=== PATIENT | male | born 1980 | race Caucasian/White ===

== ENCOUNTER 2018-09-14 14:21 | Day surgery (SDC) | payer BC ==
[2018-09-14] MEDS ORDERED: Marcaine 0.5% SDV 10 ML IJ ONE (14:22)
[2018-09-14] MEDS ORDERED: Xylocaine 1% Vial 30 ML PF IJ ONE (14:22)
[2018-09-14] MEDS ORDERED: Depo-Medrol 40 MG/ML IM ONE (14:22)
--- NOTE | 2018-09-14 16:19 | XRAY ---
11 seconds fluoroscopyt yinka in surgery for right hip injection.
--- NOTE | 2018-09-14 16:50 | XRAY ---
Indication: Right hip injection. Intraoperative fluoroscopy was provided for 11 seconds. Single digital spot image submitted for interpretation demonstrates needle tip just lateral to the right femur head. Small amount of contrast injected for needle tip placement. Correlate with intraoperative findings/report. Incidental partially visualized pelvic fixation plates/screws.
== END 2018-09-14 15:47 | disposition home or self-care (01) ==
LOC: SDC-PAIN 14:21
PROVIDERS: ATTEND Psychiatry & Neurology Pain Medicine
DX: M16.11 Unilateral primary osteoarthritis, right hip (principal); Z79.899 Other long term (current) drug therapy; G62.9 Polyneuropathy, unspecified
CPT/HCPCS: 20610; 73501; 77002; J1030; J2001; Q9966

== ENCOUNTER 2018-12-21 13:12 | Day surgery (SDC) | payer BC ==
[2018-12-21] MEDS ORDERED: Depo-Medrol 40 MG/ML IM ONE (13:13)
[2018-12-21] MEDS ORDERED: Xylocaine 1% Vial 30 ML PF IJ ONE (13:13)
[2018-12-21] MEDS ORDERED: Marcaine 0.5% SDV 10 ML IJ ONE (13:13)
[2018-12-21] MEDS ORDERED: DIPRIVAN 200 MG/20 ML IV ONE ×2 (14:52→15:02)
--- NOTE | 2018-12-21 16:32 | XRAY ---
Indication: Right SI joint injection. Intraoperative fluoroscopy was provided for 5 seconds. 2 digital spot images submitted for interpretation demonstrates posterior needle tip projecting over the inferior right SI joint. Correlate with intraoperative findings/report. Incidental partially visualized right hip orthopedic hardware.
--- NOTE | 2018-12-21 16:44 | XRAY ---
5 seconds fluoroscopy time in surgery for right SI joint injection.
[2018-12-21] MEDS ORDERED: Lactated Ringers 1,000 ML IV ONE (16:47)
== END 2018-12-21 15:28 | disposition home or self-care (01) ==
LOC: SDC-PAIN 13:12
PROVIDERS: ATTEND Psychiatry & Neurology Pain Medicine
DX: M46.1 Sacroiliitis, not elsewhere classified (principal); G62.9 Polyneuropathy, unspecified; Z79.899 Other long term (current) drug therapy
CPT/HCPCS: 20553; 27096; 72020; 77002; J1030; J2001; J2704; G0260

== ENCOUNTER 2019-04-26 13:12 | Day surgery (SDC) | payer BC ==
[2019-04-26] MEDS ORDERED: Marcaine 0.5% SDV 10 ML IJ ONE (13:13)
[2019-04-26] MEDS ORDERED: Ketamine HCl 50 MG/ML ONE (14:37)
[2019-04-26] MEDS ORDERED: DIPRIVAN 200 MG/20 ML IV ONE (14:37)
[2019-04-26] MEDS ORDERED: TORAdol 30 mg Injection ONE (14:51)
--- NOTE | 2019-04-26 15:41 | XRAY ---
Indication: Right SI joint injection. Intraoperative fluoroscopy was provided for 8 seconds. 2 digital spot image submitted for interpretation demonstrates posterior needle tip projecting over the inferior right SI joint. Correlate with intraoperative findings/report. Incidental partially visualized right hip orthopedic hardware.
--- NOTE | 2019-04-26 17:08 | XRAY ---
8 seconds fluoroscopy time in surgery for bilateral SI joint injection.
== END 2019-04-26 15:02 | disposition home or self-care (01) ==
LOC: SDC-PAIN 13:12
PROVIDERS: ATTEND Psychiatry & Neurology Pain Medicine
DX: M46.1 Sacroiliitis, not elsewhere classified (principal); Z79.899 Other long term (current) drug therapy; G62.9 Polyneuropathy, unspecified
CPT/HCPCS: 27096; 72202; 77002; J1885; J2704; G0260

== ENCOUNTER 2019-05-31 11:23 | Day surgery (SDC) | payer BC ==
[2019-05-31] MEDS ORDERED: Marcaine 0.5% SDV 10 ML IJ ONE (11:24)
[2019-05-31] MEDS ORDERED: Depo-Medrol 40 MG/ML IM ONE (11:24)
[2019-05-31] MEDS ORDERED: DIPRIVAN 200 MG/20 ML IV ONE ×2 (12:32→12:48)
[2019-05-31] MEDS ORDERED: Ketamine HCl 50 MG/ML ONE (12:32)
--- NOTE | 2019-05-31 15:36 | XRAY ---
Indication: Right ischial and trochanter bursa injection. Intraoperative fluoroscopy was provided for 29 seconds. 2 digital spot images submitted for interpretation demonstrates needle tips adjacent to the right greater trochanter and right ischial tuberosity. Small amount of contrast injected for needle tip placement. Correlate with intraoperative findings/report. Incidental partially visualized right innominate bone orthopedic hardware.
--- NOTE | 2019-05-31 15:42 | XRAY ---
29 seconds fluoroscopy time in surgery for right ischial and trochanteric bursa injections.
[2019-05-31] MEDS ORDERED: Lactated Ringers 1,000 ML IV ONE (15:55)
== END 2019-05-31 14:05 | disposition home or self-care (01) ==
LOC: SDC-PAIN 11:23
PROVIDERS: ATTEND Psychiatry & Neurology Pain Medicine
DX: M70.61 Trochanteric bursitis, right hip (principal); M70.71 Other bursitis of hip, right hip; Z79.899 Other long term (current) drug therapy
CPT/HCPCS: 20610; 73502; 77002; J1030; J2704; Q9966

== ENCOUNTER 2020-10-16 13:47 | Day surgery (SDC) | payer BC ==
[2020-10-16] MEDS ORDERED: Depo-Medrol 40 MG/ML IM ONE (13:48)
[2020-10-16] MEDS ORDERED: BUPIVACAINE 0.5% VIAL IJ ONE (13:48)
[2020-10-16] MEDS ORDERED: DIPRIVAN 200 MG/20 ML IV ONE (16:01)
[2020-10-16] MEDS ORDERED: Lactated Ringers 1,000 ML IV ONE (16:22)
--- NOTE | 2020-10-16 17:41 | XRAY ---
Indication: Right hip and ischial bursa injection. Intraoperative fluoroscopy provided for 41 seconds. 2 digital spot images obtained prone submitted for interpretation demonstrates needle tip just lateral to the right femur neck. Second needle tip projects inferior to the right ischial tuberosity. Small amount of contrast injected for both needle tip placement. Correlate with intraoperative findings/report. Incidental orthopedic fixation plates/screws overlie the hip.
--- NOTE | 2020-10-16 17:41 | XRAY ---
41 seconds of fluoroscopy was used in surgery for a right intra-articular hip and ischial bursa injection.
== END 2020-10-16 16:31 | disposition home or self-care (01) ==
LOC: SDC-PAIN 13:47
PROVIDERS: ATTEND Psychiatry & Neurology Pain Medicine
DX: M16.11 Unilateral primary osteoarthritis, right hip (principal); M70.71 Other bursitis of hip, right hip; M19.90 Unspecified osteoarthritis, unspecified site; G62.9 Polyneuropathy, unspecified; Z79.899 Other long term (current) drug therapy
CPT/HCPCS: 20610; 73502; 77002; J1030; J2704; Q9966

== ENCOUNTER 2021-02-26 14:58 | Day surgery (SDC) | payer BC ==
[2021-02-26] MEDS ORDERED: Depo-Medrol 40 MG/ML IM ONE (14:59)
[2021-02-26] MEDS ORDERED: Decadron 4 MG INJ IV ONE (14:59)
[2021-02-26] MEDS ORDERED: Xylocaine 1% Vial 30 ML PF IJ ONE (14:59)
[2021-02-26] MEDS ORDERED: BUPIVACAINE 0.5% VIAL IJ ONE (14:59)
[2021-02-26] MEDS ORDERED: Lactated Ringers 0 ML IV ONE (15:24)
[2021-02-26] MEDS ORDERED: DIPRIVAN 200 MG/20 ML IV ONE ×2 (16:33→16:50)
[2021-02-26] MEDS ORDERED: Lactated Ringers 1,000 ML IV ONE (19:21)
--- NOTE | 2021-02-26 20:41 | XRAY ---
Indication: Right piriformis, right ischial bursa, and right hip injections. Intraoperative fluoroscopy provided for 58 seconds. 3 digital spot image submitted for interpretation demonstrates posterior needle tip projecting over the expected right piriformis muscle. Second needle tip projects inferior to right initial tuberosity. Third needle tip lateral to right femur neck. Small amount of contrast injected for all needle tip placement. Correlate with intraoperative findings/report.
--- NOTE | 2021-02-27 08:42 | XRAY ---
58 seconds fluoroscopy time in surgery for injections of the right piriformis muscle, intra-articular injection of the right hip and the ischial bursa.
== END 2021-02-26 17:15 | disposition home or self-care (01) ==
LOC: SDC-PAIN 14:58
PROVIDERS: ATTEND Psychiatry & Neurology Pain Medicine
DX: M16.11 Unilateral primary osteoarthritis, right hip (principal); M79.18 Myalgia, other site; M70.71 Other bursitis of hip, right hip; Z79.899 Other long term (current) drug therapy
CPT/HCPCS: 20552; 20610; 73502; 77002; J1030; J1100; J2001; J2704; Q9966

== ENCOUNTER 2021-10-29 13:07 | Day surgery (SDC) | payer BC ==
[2021-10-29] MEDS ORDERED: XYLOCAINE-MPF 1% 5ML SDV IJ ONE (13:08)
[2021-10-29] MEDS ORDERED: Marcaine Mpf 0.5% Vial 30 Ml IJ ONE (13:08)
[2021-10-29] MEDS ORDERED: Depo-Medrol 40 MG/ML IM ONE (13:08)
[2021-10-29] MEDS ORDERED: Decadron 4 MG INJ IV ONE (13:08)
[2021-10-29] MEDS ORDERED: DIPRIVAN 200 MG/20 ML IV ONE ×2 (14:21→14:25)
[2021-10-29] MEDS ORDERED: Lactated Ringers 1,000 ML IV ONE (14:35)
--- NOTE | 2021-10-29 15:05 | XRAY ---
Indication: Right piriformis injection. Intraoperative fluoroscopy provided for 41 seconds. 3 digital spot image submitted for interpretation demonstrates needle tip projecting over the right piriformis muscle. Small amount of contrast was injected for needle tip placement. Correlate with intraoperative findings/report. Incidental multiple right tip orthopedic fixation plate/screws.
--- NOTE | 2021-10-29 16:00 | XRAY ---
41 seconds of fluoroscopy was used in surgery for a right piriformis, right ischial bursa, and right hip intra-articular injections.
== END 2021-10-29 14:45 | disposition home or self-care (01) ==
LOC: SDC-PAIN 13:07
PROVIDERS: ATTEND Psychiatry & Neurology Pain Medicine
DX: M79.18 Myalgia, other site (principal); M70.71 Other bursitis of hip, right hip; M16.11 Unilateral primary osteoarthritis, right hip; Z79.899 Other long term (current) drug therapy
CPT/HCPCS: 20552; 20610; 73502; 77002; J1030; J1100; J2704; Q9966

== ENCOUNTER 2022-03-11 11:24 | Day surgery (SDC) | payer BC ==
[2022-03-11] MEDS ORDERED: Depo-Medrol 40 MG/ML IM ONE (11:25)
[2022-03-11] MEDS ORDERED: Marcaine Mpf 0.5% Vial 30 Ml IJ ONE (11:25)
[2022-03-11] MEDS ORDERED: DIPRIVAN 200 MG/20 ML IV ONE ×2 (13:51→13:57)
[2022-03-11] MEDS ORDERED: Lactated Ringers 1,000 ML IV ONE (14:02)
--- NOTE | 2022-03-12 08:17 | XRAY ---
Indication: Right hip, right SI, and right greater trochanter bursa injections. Intraoperative fluoroscopy provided for 33 seconds. 4 digital spot image obtained prone submitted for interpretation demonstrates posterior needle tip projecting over the right SI joint. Additional needle tip lateral to the right femur neck and right greater trochanter with small amount of contrast injected for both needle tip placement. Correlate with intraoperative findings/report.
== END 2022-03-11 14:25 | disposition home or self-care (01) ==
LOC: SDC-PAIN 11:24
PROVIDERS: ATTEND Psychiatry & Neurology Pain Medicine
DX: M46.1 Sacroiliitis, not elsewhere classified (principal); M16.11 Unilateral primary osteoarthritis, right hip; M70.61 Trochanteric bursitis, right hip; Z79.899 Other long term (current) drug therapy
CPT/HCPCS: 20610; 27096; 73502; 77002; J1030; J2704; Q9966; G0260

== ENCOUNTER 2022-08-05 09:33 | Day surgery (SDC) | payer BC ==
[2022-08-05] MEDS ORDERED: Depo-Medrol 40 MG/ML IM ONE (09:34)
[2022-08-05] MEDS ORDERED: BUPIVACAINE 0.5% VIAL IJ ONE (09:34)
[2022-08-05] MEDS ORDERED: LIDOCAINE HCL 1% 50 MG/5 ML VL PF IJ ONE (09:34)
[2022-08-05] MEDS ORDERED: Decadron 4 MG INJ IV ONE (09:34)
[2022-08-05] MEDS ORDERED: DIPRIVAN 200 MG/20 ML IV ONE ×2 (11:27→11:36)
--- NOTE | 2022-08-05 12:04 | XRAY ---
Indication: Right hip, piriformis, and ischial bursa injections. Intraoperative fluoroscopy provided for 55 seconds. 4 digital spot images obtained prone submitted for interpretation demonstrates posterior needle tip projecting over right piriformis muscle. Second needle tip projects over right inferior ischial tuberosity. Third needle tip projects lateral to right femur neck. Small amount of contrast injected for all needle tip placement. Correlate with intraoperative findings/report. Incidental incompletely visualized right pelvic bone fixation plates/screws.
[2022-08-05] MEDS ORDERED: Lactated Ringers 1,000 ML IV ONE (12:09)
--- NOTE | 2022-08-05 12:20 | XRAY ---
55 seconds of fluoroscopy was used in surgery for a right intra-articular hip, right piriformis, and right ischial bursa injection.
== END 2022-08-05 12:10 | disposition home or self-care (01) ==
LOC: SDC-PAIN 09:33
PROVIDERS: ATTEND Psychiatry & Neurology Pain Medicine
DX: M70.61 Trochanteric bursitis, right hip (principal); M16.11 Unilateral primary osteoarthritis, right hip; M79.18 Myalgia, other site; Z79.899 Other long term (current) drug therapy
CPT/HCPCS: 20552; 20610; 73502; 77002; 77003; J1030; J1100; J2001; J2704; Q9966

== ENCOUNTER 2023-01-30 06:24 | Emergency (ER) | payer BC ==
[2023-01-30 06:50] VITALS: TEMP 96.8
--- NOTE | 2023-01-30 06:53 | ERPHSYRPT ---
- History of Present Illness Source: patient, family Exam Limitations: no limitations Timing/Duration: day(s) (6) Quality: painful Severity: mild Location: hands (Left hand index finger dorsal aspect) Possible Causes: other (Unsure. Initially, the patient thought it was a splinter or metal shaving. He works around both. He did not witness an insect bite) Associated Symptoms: blisters, change in skin texture <ANSELMO JAVIER - Last Filed: 01/30/23 06:47> <WILLIAM ERNANDEZ - Last Filed: 01/30/23 09:13> - History of Present Illness Time Seen by Provider: 01/30/23 06:47 Physician History: The 42-year-old left-handed male who noticed 6 days ago a small area of black necrosis dorsal aspect mid index finger. He used a knife to shave that area off. He then put Neosporin on the site and put a bandage on it. Within 24 hours he noticed increased redness and swelling. He kept it clean and by Wednesday it was worse and he went to [facility] in [facility] and an x-ray was performed which she do not have access to and he was started on Levaquin. In the last couple of days there has been some improvement but then in the last 24 hours there is been increase in swelling and redness and pus is present with palpation. He also feels pain shooting proximally from this site into his mid forearm region. A culture was obtained. Again we do not have access to this culture. Patient does not have much pain unless it is palpated. He has had no fever. (ANSELMO JAVIER) Allergies/Adverse Reactions: pork derived (porcine) Allergy (Verified 01/30/23 06:28) Pork/Porcine Containing Products Allergy (Verified 01/30/23 06:28) Home Medications: Acetaminophen with Codeine [Acetaminophen-Cod #4 Tablet] 1 each PO QID 01/30/23 [History] Desvenlafaxine Succinate [Desvenlafaxine Succinate ER] 50 mg PO DAILY 01/30/23 [History] Rizatriptan Benzoate [Rizatriptan] 10 mg PO DAILY 01/30/23 [History] levoFLOXacin [Levofloxacin] 500 mg PO DAILY 01/30/23 [History] Travel Risk - International Travel Have you traveled outside of the country in past 3 weeks: No - Coronavirus Screening Are you exhibiting any of the following symptoms?: No Close contact with a COVID-19 positive Pt in past 14-21 Days: No <ANSELMO JAVIER - Last Filed: 01/30/23 06:47> - Review of Systems Constitutional: No Symptoms Eyes: No Symptoms Ears, Nose, & Throat: No Symptoms Respiratory: No Symptoms Cardiac: No Symptoms Abdominal/Gastrointestinal: No Symptoms Genitourinary Symptoms: No Symptoms Musculoskeletal: Other (Red swollen left index finger dorsal aspect with blistering) Skin: Cellulitis (Left index finger) Neurological: No Symptoms Psychological: No Symptoms Endocrine: No Symptoms Hematologic/Lymphatic: No Symptoms Immunological/Allergic: No Symptoms All Other Systems: Reviewed and Negative <ANSELMO JAVIER - Last Filed: 01/30/23 06:47> - Past Medical History Pertinent Past Medical History: Yes - Past Surgical History Past Surgical History: Yes <ANSELMO JAVIER - Last Filed: 01/30/23 06:47> - Physical Exam General Appearance: no apparent distress, alert, anxiety Eye Exam: PERRL/EOMI, eyes nml inspection Ears, Nose, Throat Exam: normal ENT inspection, moist mucous membranes Neck Exam: normal inspection, non-tender, supple, full range of motion Respiratory Exam: airway intact, No chest tenderness, No respiratory distress Gastrointestinal/Abdomen Exam: No tenderness Rectal Exam: not done Back Exam: normal inspection, normal range of motion, No CVA tenderness, No vertebral tenderness Extremity Exam: pelvis stable, inflammation, limited range of motion, swelling, tenderness (Soft tissue swelling left index finger dorsal aspect with blistering and decreased range of motion. There is a sensation of proximal streaking but no visible redness at this time) Neurologic Exam: alert, oriented x 3, cooperative, chemistry technical officer II-XII nml as tested, normal mood/affect, nml cerebellar function, nml station & gait, sensation nml Skin Exam: other (See above) Lymphatic Exam: No adenopathy SpO2 Interpretation: normal O2 Delivery: Room Air <ANSELMO JAVIER - Last Filed: 01/30/23 06:47> - Nursing Vital Signs Nursing Vital Signs: Initial Vital Signs Temperature 96.8 F 01/30/23 06:25 Pulse Rate 63 01/30/23 06:25 Respiratory Rate 14 01/30/23 06:25 Blood Pressure 152/100 01/30/23 06:25 O2 Sat by Pulse Oximetry 100 01/30/23 06:25 Pain Scale Pain Intensity 0 - Course Nursing assessment & vital signs reviewed: Yes <ANSELMO JAVIER - Last Filed: 01/30/23 06:47> - Radiology Exams Hand X-ray Interpretation: Reviewed by me (soft tissue swelling) <WILLIAM ERNANDEZ - Last Filed: 01/30/23 09:13> Ordered Tests: Active Orders 24 hr Category Date Time Status IV Insertion STAT Care 01/30/23 06:54 Active Pulse Oximetry (ED) STAT Care 01/30/23 06:54 Active HAND (MINIMUM 3 VIEWS) Stat Exams 01/30/23 06:55 Completed BLOOD CULTURE Stat Lab 01/30/23 07:10 Received CBC W DIFF Stat Lab 01/30/23 06:55 Completed CMP Stat Lab 01/30/23 06:55 Completed Lactic Acid Stat Lab 01/30/23 07:10 Completed Medication Summary Generic Name Dose Route Start Last Admin Trade Name Freq PRN Reason Stop Dose Admin Vancomycin HCl 2 gm in 400 mls @ 133 mls/hr 01/30/23 07:45 01/30/23 07:38 Vancomycin 2 Gram/400 Ml Bag IV 03/01/23 07:44 133 mls/hr Q24H ANITA 133 mls/hr Administration Lab/Rad Data: Laboratory Result Diagrams 01/30/23 06:55 01/30/23 06:55 Laboratory Results 01/30/23 01/30/23 01/30/23 Range/Units 07:10 06:55 06:55 WBC 6.3 (4.0-10.5) x10^3/uL RBC 4.12 (4.1-5.6) x10^6/uL Hgb 12.5 (12.5-18.0) g/dL Hct 37.6 L (42-50) % MCV 91.3 (78-100) fL MCH 30.3 (26-32) pg MCHC 33.2 (32-36) g/dL RDW 12.0 (11.5-14.0) % Plt Count 188 (150-450) x10^3/uL MPV 9.8 (7.5-11.0) fL Gran % 58.2 (36.0-66.0) % Immature Gran % (Auto) 0.6 H (0.00-0.4) % Nucleat RBC Rel Count 0.0 (0.00-0.1) % Eos # (Auto) 0.16 (0-0.5) x10^3/uL Immature Gran # (Auto) 0.04 H (0.00-0.03) x10^3u/L Absolute Lymphs (auto) 1.76 (1.0-4.6) x10^3/uL Absolute Monos (auto) 0.63 (0.0-1.3) x10^3/uL Absolute Nucleated RBC 0.00 (0.00-0.01) x10^3u/L Lymphocytes % 27.9 (24.0-44.0) % Monocytes % 10.0 (0.0-12.0) % Eosinophils % 2.5 (0.00-5.0) % Basophils % 0.8 (0.0-0.4) % Absolute Granulocytes 3.67 (1.4-6.9) x10^3/uL Basophils # 0.05 (0-0.4) x10^3/uL Sodium 140 (137-145) mmol/L Potassium 4.1 (3.5-5.1) mmol/L Chloride 105 (98-107) mmol/L Carbon Dioxide 26 (22-30) mmol/L Anion Gap 13.8 (5-15) MEQ/L BUN 19 (9-20) mg/dL Creatinine 0.82 (0.66-1.25) mg/dL Estimated GFR > 60.0 ML/MIN Glucose 109 H (74-106) mg/dL Lactic Acid 1.2 (0.4-2.0) Calcium 9.1 (8.4-10.2) mg/dL Total Bilirubin 0.20 (0.2-1.3) mg/dL AST 63 H (17-59) U/L ALT 42 (0-50) U/L Alkaline Phosphatase 77 (38-126) U/L Serum Total Protein 7.1 (6.3-8.2) g/dL Albumin 4.1 (3.5-5.0) g/dL RAD/HAND (MINIMUM 3 VIEWS) Indication: Index finger swelling and erythema 6 days. No known injury. Comparison: None 3 view left hand demonstrates proximal 2nd finger soft tissue swelling. No other bony, articular, or soft tissue abnormalities (WILLIAM ERNANDEZ) - Progress Progress: unchanged Counseled pt/family regarding: lab results, diagnosis, rad results <ANSELMO JAVIER - Last Filed: 01/30/23 06:47> - Progress Counseled pt/family regarding: need for follow-up <WILLIAM ERNANDEZ - Last Filed: 01/30/23 09:13> - Progress Progress Note: 01/30/23 06:52 This patient care is transferred to Dr. Ernandez at shift change, approximately 7 AM this morning. He will follow-up on x-ray results and laboratory studies and make final disposition. (ANSELMO JAVIER) 01/30/23 07:15 Patient was seen and examined. Patient left hand index finger is swollen and purulent discharge visible. Patient and his significant other were informed about further course of action including IV antibiotic. (WILLIAM ERNANDEZ) Medical Desision Making - Independent Historian Additional History obtained from: Spouse <ANSELMO JAVIER - Last Filed: 01/30/23 06:47> - Diagnostic Testing Diagnostic test were ordered, analyzed, and reviewed by me: Yes Radiological Interpretation: Reviewed by me - Risk of complications The pt has a mod risk of morbidity or mortality based on: Need for prescription drug management The pt has a high risk of morbidity or mortality based on: Drug therapy requiring intensive monitoring for toxicity <WILLIAM ERNANDEZ - Last Filed: 01/30/23 09:13> - Departure Departure Disposition: Observation Critical Care Time: No <ANSELMO JAVIER - Last Filed: 01/30/23 06:47> - Departure Departure Disposition: Home <WILLIAM ERNANDEZ - Last Filed: 01/30/23 09:13> - Departure Clinical Impression: Cellulitis of finger of left hand Condition: Stable Referrals: AMNA BENITEZ [Primary Care Provider] - Follow up with PCP 2 days HAIDER WRIGHT MD [NON-STAFF PHY W/O PRIVILEGES] - Follow up/PCP as directed CIRO WATERS [NON-STAFF PHY W/O PRIVILEGES] - Follow up/PCP as directed Instructions: Methicillin-resistant Staphylococcus aureus (MRSA), Cellulitis (Skin Infection), Adult (DC) Additional Instructions: You have a infection in your left index finger which appears to be methicillin- resistant staph infection. You will need an IV antibiotic for at least 10 days which we already have schedule it as an outpatient at [facility]. You will get Invanz 1 g IV daily for 10 days. We are giving you a address for the hand surgeon whom you need to call and make an appointment in next 2 to 3 days. Continue cleaning your finger with soap and water and put antibiotic cream which we have prescribed you. Follow-up with Dr. Ernandez on Wednesday. Discharge/Care Plan FLORINA NUNO was seen on 01/30/23 in the Emergency Room. The patient was counseled regarding Diagnosis,Lab results, Imaging studies, need for follow up and when to return to the Emergency Room. Prescriptions given: Discharge Note I have spoken with the patient and/or caregivers. I have explained the patient's condition, diagnosis and treatment plan based on the information available to me at this time. I have answered the patient's and/or caregiver's questions and addressed any concerns. The patient and/or caregivers have as good understanding of the patient's diagnosis, condition and treatment plan as can be expected at this point. The vital signs have been stable. The patient's condition is stable and appropriate for discharge from the emergency department. The patient will pursue further outpatient evaluation with the primary care physician or other designated or consulting physician as outlined in the discharge instructions. The patient and/or caregivers are agreeable to this plan of care and follow-up instructions have been explained in detail. The patient and/or caregivers have received these instruction. The patient/and or caregivers are aware that any significant change in condition or worsening of symptoms should prompt an immediate return to this or the closest emergency department or call 911. FLORINA NUNO was seen on 01/30/23 n the Emergency Room. At that time you were treated for an emergent condition, during your visit Laboratory, Radiology and/or other procedures may have been ordered. It is very important that you follow-up with your Primary Care Physician AMNA BENITEZ within the next 24-48 hours to review your Emergency Room visit and the final results of testing that was ordered. Some test results such as Urine Cultures, Blood Cultures, and other cultures if ordered will not be finalized for 24-48 hours. If you do not have a Primary Care Provider please call the medical records department at [phone] ext [phone] to obtain a copy of your results or you may sign into our patient portal to obtain these results by visiting us @ [email or web address] and completing the following steps: 1. Click on the Patient Portal link 2. Click the Patient Self Enrollment Link to complete the enrollment form and entering your 3. Once the enrollment form is completed you will receive an email with a temporary ID and password at the email address you provided. 4. Next choose a user name and password. Your user name must be at least 4 characters long and your password must be at least 4 characters long. 5. Choose a security question from the list and provide your answer to the question. If you already have signed into the Health Portal you may access your Health Care Information 14/12 by the following steps: 1. Login to our website @ [email or web address] 2. Enter your original user name and password. FAQS The [facility] Health Portal is an online tool that contains your Lab Results, Radiology Reports, Visit History, Discharge Instructions and Health Summary Lab and Radiology Results will not be available for 72 hours on the portal. The Portal is a secure site, passwords are encryted and URLs are re-written so they cannot be copied and pasted. You and authorized family members are the only ones who can access your Portal. Also there is a timeout feature that protects your information if you leave the Portal page open. If you have technical difficulty please use the Contact Us link on the page this will allow you to submit any questions you have regarding the Portal or you may contact the Medical Record Department at [phone] ext [phone]. Prescriptions: Mupirocin [Bactroban OINTMENT] 2 gm TP BID #30 cm Ertapenem Sodium [Invanz ] 1 g IV DAILY #10 iv piggy
[2023-01-30 07:21] LABS: Absolute Neutrophil Ct (ANC) 3.67 x10^3/uL (1.4-6.9); BASOPHIL % 0.8 % (0.0-0.4); Basophil (Absolute #) 0.05 x10^3/uL (0-0.4); Eosinophil % 2.5 % (0.00-5.0); Eosinophil (Absolute #) 0.16 x10^3/uL (0-0.5); Hematocrit 37.6 % (42-50); Hemoglobin 12.5 g/dL (12.5-18.0); IMMATURE GRAN # 0.04 x10^3u/L (0.00-0.03); IMMATURE GRAN % 0.6 % (0.00-0.4); Lymphocyte (Absolute #) 1.76 x10^3/uL (1.0-4.6); Lymphocytes % 27.9 % (24.0-44.0); Mean Cell Volume 91.3 fL (78-100); Mean Corpuscular Hemoglobin 30.3 pg (26-32); Mean Corpuscular Hgb Concent. 33.2 g/dL (32-36); Mean Platelet Volume 9.8 fL (7.5-11.0); Monocyte (Absolute #) 0.63 x10^3/uL (0.0-1.3); Neutrophil % 58.2 % (36.0-66.0); Platelet Count 188 x10^3/uL (150-450); Red Blood Count 4.12 x10^6/uL (4.1-5.6); White Blood Count 6.3 x10^3/uL (4.0-10.5)
--- NOTE | 2023-01-30 07:31 | XRAY ---
Indication: Index finger swelling and erythema 6 days. No known injury. Comparison: None 3 view left hand demonstrates proximal 2nd finger soft tissue swelling. No other bony, articular, or soft tissue abnormalities.
[2023-01-30 07:34] LABS: ALBUMIN 4.1 g/dL (3.5-5.0); ALKALINE PHOSPHATASE 77 U/L (38-126); ANION GAP 13.8 MEQ/L (5-15); BLOOD UREA NITROGEN 19 mg/dL (9-20); CHLORIDE 105 mmol/L (98-107); Calcium 9.1 mg/dL (8.4-10.2); Carbon Dioxide 26 mmol/L (22-30); Creatinine 1 0.82 mg/dL (0.66-1.25); EST GLOMERULAR FILTRATION RATE > 60.0 ML/MIN; Glucose 109 mg/dL (74-106); Potassium 4.1 mmol/L (3.5-5.1); SGOT/AST 63 U/L (17-59); SGPT/ALT 42 U/L (0-50); SODIUM 140 mmol/L (137-145); Total Protein 7.1 g/dL (6.3-8.2)
[2023-01-30] MEDS ORDERED: VANCOMYCIN 2 GRAM/400 ML BAG 2 GM/400 ML PIGGYBACK IV ONE (07:38)
[2023-01-30] MEDS ORDERED: VANCOMYCIN 2 GRAM/400 ML BAG 2 GM/400 ML PIGGYBACK IV SCH (07:45)
[2023-01-30 10:38] VITALS: BP 128/82; PULSE 62; RESP 16; O2SAT 100
[2023-01-30] MEDS ORDERED: BACIGUENT PACKET TP ONE (10:40)
[2023-01-30] MEDS ORDERED: BACIGUENT PACKET ONE (10:40)
== END 2023-01-30 10:55 | disposition home or self-care (01) ==
LOC: ED 06:24
DX: L03.012 Cellulitis of left finger (principal); Z79.891 Long term (current) use of opiate analgesic; Z79.899 Other long term (current) drug therapy
CPT/HCPCS: 36000; 36415; 73130; 80053; 83605; 85025; 87040; 94760; 96365; 96366; 99284; A9270-GY; J3370

== ENCOUNTER 2023-03-31 12:06 | Day surgery (SDC) | payer BC ==
[2023-03-31] MEDS ORDERED: LIDOCAINE HCL 1% 50 MG/5 ML VL PF IJ ONE (12:07)
[2023-03-31] MEDS ORDERED: Decadron 4 MG INJ IV ONE (12:07)
[2023-03-31] MEDS ORDERED: BUPIVACAINE 0.5% VIAL IJ ONE (12:07)
[2023-03-31] MEDS ORDERED: Depo-Medrol 40 MG/ML IM ONE (12:07)
[2023-03-31] MEDS ORDERED: DIPRIVAN 200 MG/20 ML IV ONE ×2 (15:10→15:18)
[2023-03-31] MEDS ORDERED: Versed 2 MG/2 ML Injection ONE (15:11)
[2023-03-31] MEDS ORDERED: Lactated Ringers 1,000 ML IV ONE (15:40)
--- NOTE | 2023-03-31 17:01 | XRAY ---
Indication: Right hip, show bursa, and piriformis injections. Intraoperative fluoroscopy provided for 45 seconds. 4 digital spot images obtained prone submitted for interpretation demonstrates needle tip projecting lateral to right femur neck. Second needle tip inferior to right ischial tuberosity. Third needle tip projects over right piriformis. Small amount of contrast injected for all needle tip placement. Correlate with intraoperative findings/report. Incidental incompletely visualized right pelvic orthopedic fixation hardware.
--- NOTE | 2023-03-31 17:06 | XRAY ---
45 seconds of fluoroscopy was used in surgery for a right intra-articular hip, ischial bursa, and piriformis injection.
== END 2023-03-31 15:39 | disposition home or self-care (01) ==
LOC: SDC-PAIN 12:06
PROVIDERS: ATTEND Psychiatry & Neurology Pain Medicine
DX: M16.11 Unilateral primary osteoarthritis, right hip (principal); M70.71 Other bursitis of hip, right hip; M79.18 Myalgia, other site; Z79.899 Other long term (current) drug therapy
CPT/HCPCS: 20552; 20610; 73501; 77002; J1030; J1100; J2001; J2250; J2704; Q9966